=== PATIENT | male | born 1940 | race Caucasian/White ===

== ENCOUNTER 2022-03-03 12:05 | Outpatient (REF) | payer MEDICARE, SELFPAY ==
--- NOTE | ~2022-03-03 | XR_ITS ---
EXAMINATION: XR FOOT, LEFT CLINICAL INFORMATION: Pain COMPARISON: None TECHNIQUE: AP, lateral, and oblique views of the left foot. FINDINGS: There is no evidence of acute fracture or dislocation of the left foot. Prominent vascular calcifications are seen about the foot. There is soft tissue calcification seen about the medial aspect of the first metatarsal head. Be mild erosive change about the first metatarsal head which may relate to gouty arthritis. The metatarsophalangeal joint is maintained. There is a small calcaneal spurs at insertion of the plantar tendon. There is narrowing with spurring of the first tarsometatarsal joint. XR/XR foot LT min 3V IMPRESSION: Soft tissue calcification with what appears be some adjacent erosion about the medial and dorsal aspects of the first metatarsal head. Degenerative change of the first tarsometatarsal joint. No acute fracture or dislocation.
== END 2022-03-03 12:06 | disposition home or self-care (01) ==
LOC: HO.HMGCX 12:05
PROVIDERS: Visit Provider Nurse Practitioner Family
DX: M79.89 Other specified soft tissue disorders (principal); M79.675 Pain in left toe(s)
CPT/HCPCS: 73630

== ENCOUNTER 2024-01-31 07:11 | Day surgery (SDC) | payer MEDICARE, SELFPAY ==
[2024-01-25 08:05] VITALS: BMI 25.7
--- NOTE | 2024-01-27 13:48 | HO.ANESPROP2 ---
Documented by User: Suzette Ly NP 01/27/24 13:49 HPI - Anesthesia Eval Consult details Narrative: 83yo M for Left Cataract Extraction IOL Insertion No previous cataract on record PMFSH Active Problems Active Problems: All Active Problems Pain and swelling of toe (Acute) Past Medical History Medical History Pseudomonas aeruginosa infection Port-A-Cath in place Cortical cataract of both eyes Squamous cell carcinoma in situ of skin Inflammatory arthropathy HTN (hypertension) BPH (benign prostatic hyperplasia) Chronic heart failure with preserved ejection fraction Pulmonary nodules Anxiety Immunoglobulin G deficiency Chronic kidney disease Constipation Basal cell carcinoma Permanent atrial fibrillation Mastoiditis of left side Intertriginous candidiasis Impetigo CLL (chronic lymphocytic leukemia) Atherosclerosis of [place] coronary artery of [place] heart without angina pectoris Acute hypoxemic respiratory failure Surgical History Surgical History No pertinent past surgical history Social History Social History Patient Tobacco Use Status: Never used Tobacco Use of substances other than those prescribed or required for medical reasons: No Are you DNR?: Yes Advance Directives: No Advance Directives Information Provided: Yes Advance Directives on File: No Nutrition Risks: No Nutritional Risk Meds Allergies Allergy/AdvReac Type Severity Reaction Status Date / Time Penicillins Allergy Intermediate RASH Verified 01/31/24 08:08 Home Medications ?Medication ?Instructions ?Recorded ?Confirmed ?Last Taken ?Type acalabrutinib 100 mg capsule 100 mg PO BID 03/03/22 01/25/24 Unknown History ([place]) atorvastatin 80 mg tablet 80 mg PO DAILY 03/03/22 01/25/24 Unknown History azithromycin 500 mg tablet 500 mg PO 3XW 03/03/22 01/25/24 Unknown History finasteride 5 mg tablet 5 mg PO DAILY 03/03/22 01/25/24 Unknown History fluticasone propionate 110 1 puff inhalation BID 03/03/22 01/25/24 Unknown History mcg/actuation HFA aerosol inhaler (Flovent HFA) furosemide 20 mg tablet 40 mg PO DAILY 03/03/22 01/25/24 Unknown History tamsulosin 0.4 mg capsule 0.4 mg PO DAILY 03/03/22 01/25/24 Unknown History acetaminophen 325 mg tablet 650 mg PO Q6H PRN Pain 01/25/24 01/25/24 Unknown History albuterol sulfate 90 mcg/actuation 2 puff inhalation Q6H PRN Wheezing 01/25/24 01/25/24 Unknown History aerosol inhaler apixaban 2.5 mg tablet (Eliquis) 2.5 mg PO BID 01/25/24 01/25/24 01/31/24 History cholecalciferol (vitamin D3) 25 25 mcg PO DAILY 01/25/24 01/25/24 Unknown History mcg (1,000 unit) tablet ciprofloxacin 0.3 %-dexamethasone 4 drp otic (ears) BID 01/25/24 01/25/24 Unknown History 0.1 % ear drops,suspension ferrous sulfate 324 mg (65 mg 324 mg PO DAILY 01/25/24 01/25/24 01/31/24 History iron) tablet,delayed release fluticasone furoate 200 1 inh inhalation DAILY 01/25/24 01/25/24 Unknown History mcg/actuation blister powder for inhalation (Arnuity Ellipta) ketoconazole 2 % topical cream 1 appl topical BID 01/25/24 01/25/24 Unknown History metoprolol succinate 25 mg 25 mg PO DAILY 01/25/24 01/25/24 01/31/24 History tablet,extended release 24 hr Exam Height,Weight and Vital Signs: Height 5 ft 3 in Weight 65.771 kg Assessment and Plan Assessment Anesthesia Assessment: Chart Reviewed Documented by User: Jailene Dominguez MD 01/31/24 08:19 [facility] Past Medical History Medical History Pseudomonas aeruginosa infection Port-A-Cath in place Cortical cataract of both eyes Squamous cell carcinoma in situ of skin Inflammatory arthropathy HTN (hypertension) BPH (benign prostatic hyperplasia) Chronic heart failure with preserved ejection fraction Pulmonary nodules Anxiety Immunoglobulin G deficiency Chronic kidney disease Constipation Basal cell carcinoma Permanent atrial fibrillation Mastoiditis of left side Intertriginous candidiasis Impetigo CLL (chronic lymphocytic leukemia) Atherosclerosis of [place] coronary artery of [place] heart without angina pectoris Acute hypoxemic respiratory failure Surgical History Surgical History No pertinent past surgical history History of Problems with Anesthesia: No Social History Social History Patient Tobacco Use Status: Never used Tobacco Use of substances other than those prescribed or required for medical reasons: No Are you DNR?: Yes Advance Directives: No Advance Directives Information Provided: Yes Advance Directives on File: No Nutrition Risks: No Nutritional Risk Meds Allergies Allergy/AdvReac Type Severity Reaction Status Date / Time Penicillins Allergy Intermediate RASH Verified 01/31/24 08:08 Home Medications ?Medication ?Instructions ?Recorded ?Confirmed ?Last Taken ?Type acalabrutinib 100 mg capsule 100 mg PO BID 03/03/22 01/25/24 Unknown History ([place]) atorvastatin 80 mg tablet 80 mg PO DAILY 03/03/22 01/25/24 Unknown History azithromycin 500 mg tablet 500 mg PO 3XW 03/03/22 01/25/24 Unknown History finasteride 5 mg tablet 5 mg PO DAILY 03/03/22 01/25/24 Unknown History fluticasone propionate 110 1 puff inhalation BID 03/03/22 01/25/24 Unknown History mcg/actuation HFA aerosol inhaler (Flovent HFA) furosemide 20 mg tablet 40 mg PO DAILY 03/03/22 01/25/24 Unknown History tamsulosin 0.4 mg capsule 0.4 mg PO DAILY 03/03/22 01/25/24 Unknown History acetaminophen 325 mg tablet 650 mg PO Q6H PRN Pain 01/25/24 01/25/24 Unknown History albuterol sulfate 90 mcg/actuation 2 puff inhalation Q6H PRN Wheezing 01/25/24 01/25/24 Unknown History aerosol inhaler apixaban 2.5 mg tablet (Eliquis) 2.5 mg PO BID 01/25/24 01/25/24 01/31/24 History cholecalciferol (vitamin D3) 25 25 mcg PO DAILY 01/25/24 01/25/24 Unknown History mcg (1,000 unit) tablet ciprofloxacin 0.3 %-dexamethasone 4 drp otic (ears) BID 01/25/24 01/25/24 Unknown History 0.1 % ear drops,suspension ferrous sulfate 324 mg (65 mg 324 mg PO DAILY 01/25/24 01/25/24 01/31/24 History iron) tablet,delayed release fluticasone furoate 200 1 inh inhalation DAILY 01/25/24 01/25/24 Unknown History mcg/actuation blister powder for inhalation (Arnuity Ellipta) ketoconazole 2 % topical cream 1 appl topical BID 01/25/24 01/25/24 Unknown History metoprolol succinate 25 mg 25 mg PO DAILY 01/25/24 01/25/24 01/31/24 History tablet,extended release 24 hr Exam Airway Mallampati Class: III (globally poor dentition) TM Dist: >3cm Neck ROM: Limited Loose/Missing/Broken Teeth: Yes, Upper and Lower Heart: irregularly irregular rhythm Lungs: CTA Assessment and Plan Assessment Anesthesia Assessment: Anesthesia Plan Discussed Final Anesthetic Review History of Problems with Anesthesia: No NPO: Yes ASA Class: III Final Preanesthetic Review: Meds/Allgs Chart Reviewed, Consent Obtained/Reviewed and Anes Risks/Benef Reviewed Patient Risk: Intermediate Procedure Risk: Low Anesthetic Plan Anesthetic Plan: MAC: Disposition: Standard PACU
[2024-01-31] MEDS: Tetracaine HCl/PF 0.5% Oph Sol 4 ML DROPS 1 DROP EYE-LEFT (08:10)
[2024-01-31 08:12] VITALS: BP 135/80; PULSE 62; RESP 16; TEMP 36.6; O2SAT 96; BMI 25.7
[2024-01-31] MEDS: Cyclopentolate 1 % Ophth Sol 2 ML DRPBTL 1 DROP EYE-LEFT ×3 (08:20→08:41)
[2024-01-31] MEDS: Ketorolac Tromethamine 0.5% Op 10 ML DROPS 1 DROP EYE-LEFT ×3 (08:24→08:43)
[2024-01-31] MEDS: Tropicamide 1 % Ophth Sol 3 ML BTL 1 DROP EYE-LEFT ×3 (08:29→08:46)
[2024-01-31] MEDS: Phenylephrine HCL 2.5% Oph SoL 2 ML BOTTLE 1 DROP EYE-LEFT ×3 (08:31→08:47)
[2024-01-31] MEDS: Lactated Ringers 500 ML 50 ML IV (08:33)
--- NOTE | 2024-01-31 09:30 | MHC.SHP ---
Pre-Procedural Eval Section A - 24 Hr Update-Section A only Date of Service: 01/31/24 The patient is an INPATIENT: No Changes since office visit: No Cold of Flu in the past 2 weeks, No New Medical Problems, No Changes in Medication and No Patient answered all questions The patient has been examined within 24 hours of the surgical procedure. The History & Physical has been completed within 30 days and I have reviewed it.: Yes Section B - Complete if H&P > 30 days Chief Complaint: Age-related nuclear cataract, left eye Allergies: Allergies Allergy/AdvReac Type Severity Reaction Status Date / Time Penicillins Allergy Intermediate RASH Verified 01/31/24 08:08 Plan Diagnosis/Plan: Unchanged I have reviewed the history and physical and performed a pertinent physical examination on my patient. No changes have occurred unless specified. Time Spent With Patient Time: Total time managing care of this patient today ____ minutes.
--- NOTE | 2024-01-31 09:30 | HO.PNOPHT ---
Ophthalmology Procedure Procedure Date of Service: 01/31/24 Ophthalmology Viscoelastic: Healon Duet Dual Pack Pro Ophthalmology Lenses: IOL Acrysof MP - [id number] (21) Procedure Notes: PREOPERATIVE DIAGNOSIS: Decreased visual acuity left eye secondary to cataract POSTOPERATIVE DIAGNOSIS: Same PROCEDURE: Left cataract extraction with intraocular lens insertion SURGEON: Roberto Zazueta M.D. ANESTHESIA: Topical/MAC ESTIMATED BLOOD LOSS: None COMPLICATIONS: None After obtaining informed consent, the patient was brought to the operation room suite and placed in the supine position. After adequate sedation per anesthesia, topical drops of Tetracaine were given to the left eye. The eye was then prepped and draped in the usual sterile fashion. The operating room microscope was then positioned over the operative eye and a lid speculum placed. A paracentesis was created. Viscoelastic was then instilled into the anterior chamber. A three plane incision was then created temporally, utilizing a 2.85 mm keratome. Capsulotomy forceps were then utilized to create a circular tear capsulotomy. Hydrodissection and hydrodelineation were carried out until adequate mobilization of the nucleus occurred. Phacoemulsification was then utilized to remove the dense central nucleus followed by removal of the cortical material utilizing the automated aspiration irrigation unit. Viscoat elastic was instilled into the posterior capsular bag followed by placement of a posterior chamber intraocular lens without difficulty. The residual Viscoat elastic was then removed utilizing the automated IA machine. The wound was check and found to be watertight. The patient tolerated the procedure well and the lid speculum was removed. Intracameral injection of Vigamox 0.1 mL followed by a subtenon injection of Kenalog-40 0.2 mL were administered. The patient will be seen in the a.m.
[2024-01-31 09:38] VITALS: BP 163/81; PULSE 59; RESP 16; TEMP 36.1; O2SAT 98
--- OUTSIDE RECORDS SUMMARY | 2024-02-04 12:48 | XMS_ITS | Continuity of Care Document ---
Author Organization [facility] ter Address [address] [place] [id number]- Care Team Providers Care Swing Driver Name Role Phone Donald GARCIA, Jose Lott Primary Care Physician [phone] Encounter [facility] Date(s): 09/21/21 - 09/22/[address] [address]- Encounter Diagnosis T12 compression fracture(Final) - 09/22/21 Discharge Disposition: A-D/C Home Attending Physician: Sharyn Kaye MD Admitting Physician: Sharyn Kaye MD Referring Physician: Not on Staff, Referring MD Allergies, Adverse Reactions, Alerts Substance Reaction Severity Status penicillin rash Active penicillins Active Immunizations Given and Recorded Vaccine Date Status Refusal Reason tetanus/diphtheria/pertussis, acel(Tdap) 09/10/21 Recorded tetanus/diphtheria/pertussis, acel(Tdap) 02/15/08 Recorded SARS-CoV-2 (COVID-19) mRNA BNT-162b2 vac 01/17/21 Recorded SARS-CoV-2 (COVID-19) mRNA BNT-162b2 vac 05/15/20 Recorded SARS-CoV-2 (COVID-19) mRNA BNT-162b2 vac 04/24/20 Recorded influenza virus vaccine, inactivated 12/25/20 Jose rded influenza virus vaccine, inactivated 01/08/20 Jose rded influenza virus vaccine, inactivated 12/19/18 Jose rded influenza virus vaccine, inactivated 01/05/18 Jose rded influenza virus vaccine, inactivated 12/26/16 Jose rded pneumococcal 13-valent vaccine 01/05/18 Recorded pneumococcal 23-valent vaccine 01/27/07 Recorded tetanus-diphtheria toxoids (Td) 03/26/98 Recorded Medications aspirin 81 mg oral tablet 1 tablet = 81 mg, By Mouth, Daily, # 30 tablet, 0 Refills, Maintenance, 01/31/14 18:06:31, Tablet Start Date: 01/31/14 Status: Ordered atorvastatin 80 mg oral tablet 1 tablet = 80 mg, By Mouth, Daily at bedtime, 0 Refills, Maintenance, 01/31/14 17:41:32 Start Date: 01/31/14 Status: Ordered Finasteride = 5 mg, By Mouth, Daily, 0 Refills, Maintenance Start Date: 09/16/11 Status: Ordered finasteride 5 mg oral tablet 1 tablet = 5 mg, By Mouth, Daily, 0 Refills, Maintenance, 01/31/14 17:42:33 Start Date: 01/31/14 Status: Ordered fluticasone nasal 0.05 mg/inh spray 1 sprays, Nares, Both, 2 times a day, # 16 Gm, 0 Refills, Maintenance, [place] Start Date: 09/16/11 Status: Ordered Hydrochlorothiazide = 12.5 mg, By Mouth, Daily, 0 Refills, Maintenance Start Date: 09/16/11 Status: Ordered hydrochlorothiazide-lisinopril 12.5 mg-20 mg oral tablet 1 tablet, By Mouth, Daily, 0 Refills, Maintenance, 01/31/14 17:42:20 Start Date: 01/31/14 Status: Ordered Lipitor 80 mg oral tablet 1 tablet = 80 mg, By Mouth, Daily at bedtime, 0 Refills, Maintenance Start Date: 09/16/11 Status: Ordered Lisinopril = 20 mg, By Mouth, Daily, 0 Refills, Maintenance Start Date: 09/16/11 Status: Ordered metoprolol 200 mg oral tablet, extended release 1 tablet = 200 mg, By Mouth, Daily, 0 Refills, Maintenance Start Date: 09/16/11 Status: Ordered NIFEdipine = 60 mg, By Mouth, 0 Refills, Maintenance Start Date: 09/16/11 Status: Ordered nifedipine 60 mg oral tablet, extended release 1 tablet = 60 mg, By Mouth, Daily, 0 Refills, Maintenance, 01/31/14 17:41:59 Start Date: 01/31/14 Status: Ordered Salinex [place] 1 sprays, Nares, Both, 4 times a day, PRN Other, dryness, 0 Refills, Maintenance, 01/31/14 17:42:49, Nasal [place] Start Date: 01/31/14 Status: Ordered Toprol XL 200 mg oral tablet, extended release 1 tablet = 200 mg, By Mouth, Daily, 0 Refills, Maintenance, 01/31/14 17:41:46 Start Date: 01/31/14 Status: Ordered Problem List Condition Effective Dates Status Health Status Inform ant CLL (chronic lymphocytic leukemia)(Confirmed) Active CAD (coronary artery disease)(Confirmed) Active HLD (hyperlipidemia)(Confirmed) Active HTN (hypertension)(Confirmed) Active Results Radiology Reports * Exam Date Time Procedure Performing Provider Status 09/22/21 3:11 AM XR Femur 2 Views Right Tiffanielyubov Lucila; Auth (Verified) Notes: (XR Femur 2 Views Right) Reason For Exam: Trauma RESULT: Femur 2 Views Right Femur 2 Views Right INDICATION: Hx of fall on 09 10 21, sustained a head lac on LT parietal area and was sutured at [facility]; Pt went back to [facility] today because his back and RT thigh pain have been persistent since discharge; Rad studies done with findings of T12 fracture; Reason: Trauma; Clinical Question(s): Fracture COMPARISON: None. FINDINGS: No fracture, dislocation or bone lesion. Visualized portions of the joints are normal. Extensive vascular calcifications. IMPRESSION: No acute abnormality. I have personally reviewed the images and I agree with this report. WSN: [id number] Ordering Physician: Cody Munguia Dictated By: Davin Carvajal DO Dictated Date/Time: 09/22/21 8:56 am Reviewed By: Terrence Garcia MD Signed By: Terrence Garcia MD Signed Date/Time: 09/22/21 9:01 am Transcribed By: SHUN Transcribed Date/Time: 09/22/21 8:16 am Vital Signs Most recent to oldest [Reference Range]: 1 2 3 Height 162 cm (09/22/21 1:21 AM) Weight 65 kg (09/22/21 1:21 AM) Oxygen Saturation [94-100 %] 98 % (09/22/21 11:58 AM) 100 % (09/22/21 8:17 AM) 98 % (09/22/21 4:20 AM) Pulse Rate [55-90 bpm] 48 bpm *L* (09/22/21 11:58 AM) 61 bpm (09/22/21 8:17 AM) 67 bpm (09/22/21 4:20 AM) Blood Pressure [90-138/55-84 mm Hg] 114/54mm Hg (09/22/21 11:58 AM) 135/65mm Hg (09/22/21 8:17 AM) 113/65mm Hg (09/22/21 4:20 AM) Respiratory Rate [16-30 br/min] 22 br/min (09/22/21 11:58 AM) 21 br/min (09/22/21 8:17 AM) 18 br/min (09/22/21 4:20 AM) Temperature [96.8-100.4 DegF] 98.9 DegF (09/22/21 12:54 AM) Liters per Minute 2 L/min (09/22/21 8:17 AM) 2 L/min (09/22/21 4:20 AM) 2 L/min (09/22/21 3:14 AM) Mode of Delivery (Oxygen) Room air (09/22/21 11:58 AM) Nasal cannula (09/22/21 8:17 AM) Nasal cannula (09/22/21 4:20 AM) Blood pressure sites Arm, right (09/22/21 11:58 AM) Arm, right (09/22/21 8:17 AM) Arm, right (09/22/21 4:20 AM) Temperature Route Oral (09/22/21 12:54 AM) Weight Obtained Via Patient/family stated (09/22/21 1:21 AM) Social History Social History Type Response Smoking Status Unknown if ever smok ed entered on: 02/01/14 Sex
--- OUTSIDE RECORDS SUMMARY | 2024-02-04 12:48 | XMS_ITS | Continuity of Care Document ---
Author Organization [facility] Address [address] [place] [address]- Care Team Providers Care Timber Repairer Name Role Phone Donald GARCIA, Jose Lott Primary Care Physician Encounter [facility] [id number] Date(s): 12/13/22 - 01/12/23 [facility] [address], [place] [address] Attending Physician: Admsandy, Alyson Admitting Physician: Admtr, Ar8 Referring Physician: Admtr, Ar8 Allergies, Adverse Reactions, Alerts Substance Reaction Severity [...] day, # 16 Gm, 0 Refills, Maintenance, [place] Start Date: 09/16/11 Status: Ordered Hydrochlorothiazide = [...] 17:41:59 Start Date: 01/31/14 Status: Ordered Salinex [place] 1 sprays, Nares, Both, 4 times a day, PRN Other, dryness, 0 Refills, Maintenance, 01/31/14 17:42:49, Nasal [place] Start Date: 01/31/14 Status: Ordered Toprol XL 200 mg oral tablet, extended release 1 tablet = 200 mg, By Mouth, Daily, 0 Refills, Maintenance, 01/31/14 17:41:46 Start Date: 01/31/14 Status: Ordered Problem List Condition Confirmation Course Effective Dates Status Health St atus Informant CLL (chronic lymphocytic leukemia) Confirmed Active CAD (coronary artery disease) Confirmed Active HLD (hyperlipidemia) Confirmed Active HTN (hypertension) Confirmed Active Social History Social History Type Response Smoking Status Unknown if ever smok ed entered on: 02/01/14 Sex Patient Care team information Care Team Personnel Name: Jeanette Levy RN Position: [facility] RN Member Role: Primary Care Nurse Name: Socorro Rodriguez RN Position: [facility] RN Member Role: Primary Care Nurse Name: Jose Bennett MD Position: [facility] General Pediatrics MD Member Role: PCP Address: Address: [address] [place] [address] [address] [place] [address]- Care Team Related Persons Name: HARI DERIK Address: [address] [address]
--- OUTSIDE RECORDS SUMMARY | 2024-02-04 12:48 | XMS_ITS | Continuity of Care Document ---
Author Organization [facility] Address [address] [place] [address]- Care Team Providers Care Director Of Labor And Delivery Name Role Phone Jose Bennett MD Primary Care Physician [id number] Date[facility]13[facility] - [facility]/12/23 [facility] [address] [place], [place] [address] Attending Physician: Kiley Álvarez MD Referring Physician: Jose Bennett MD Allergies, Adverse Reactions, Alerts Substance Reaction [...] day, # 16 Gm, 0 Refills, Maintenance, [place] Start Date: 09/16/11 Status: Ordered Hydrochlorothiazide = [...] 17:41:59 Start Date: 01/31/14 Status: Ordered Salinex [place] 1 sprays, Nares, Both, 4 times a day, PRN Other, dryness, 0 Refills, Maintenance, 01/31/14 17:42:49, Nasal [place] Start Date: 01/31/14 Status: Ordered Toprol XL [...] Team Personnel Name: Jeanette Levy RN Position: [facility] RN Member Role: Primary Care Nurse Name: Socorro Rodriguez RN Position: [facility] RN Member Role: Primary Care Nurse Name: Jose Bennett MD Position: [facility] General Pediatrics MD Member Role: PCP Address: Address: [address] [place] [address] [address] [place], [place] [address] Care Team Related Persons Name: DERIK NORIEGA Address: home [address] [place] [id number]
== END 2024-01-31 10:35 | disposition home or self-care (01) ==
PROVIDERS: PCP Internal Medicine; Visit Provider Ophthalmology
PROC: (CPT 66985; principal; 2024-01-31 09:00)
DX: H25.12 Age-related nuclear cataract, left eye (principal); H52.4 Presbyopia; H18.413 Arcus senilis, bilateral; H11.153 Pinguecula, bilateral; I10 Essential (primary) hypertension; C91.10 Chronic lymphocytic leukemia of B-cell type not having achieved remission; Z66 Do not resuscitate; Z88.0 Allergy status to penicillin; Z79.899 Other long term (current) drug therapy; Z79.01 Long term (current) use of anticoagulants
CPT/HCPCS: 66984; J2250; J3301; V2630